=== PATIENT | male | born 1945 | race Caucasian/White ===

== ENCOUNTER → 2022-04-14 | Outpatient (CLI) | payer MEDICARE | END | disposition home or self-care (01) | LOC: RESCLI 10:39 | PROVIDERS: ATTEND Specialist | DX: Z86.711 Personal history of pulmonary embolism (principal); E78.5 Hyperlipidemia, unspecified; E03.9 Hypothyroidism, unspecified; E78.00 Pure hypercholesterolemia, unspecified; E55.9 Vitamin D deficiency, unspecified; I10 Essential (primary) hypertension; F17.210 Nicotine dependence, cigarettes, uncomplicated; G70.00 Myasthenia gravis without (acute) exacerbation; R53.83 Other fatigue ==

== ENCOUNTER → 2023-05-29 | Outpatient (CLI) | payer MEDICARE | END | disposition home or self-care (01) | LOC: RESCLI 01:57 | PROVIDERS: ATTEND Internal Medicine | DX: G70.00 Myasthenia gravis without (acute) exacerbation (principal); E03.9 Hypothyroidism, unspecified; R53.83 Other fatigue; Z86.711 Personal history of pulmonary embolism; Z98.890 Other specified postprocedural states; Z79.899 Other long term (current) drug therapy ==